=== PATIENT | male | born 1950 | race Caucasian/White ===

== ENCOUNTER 2016-07-14 09:06 | Day surgery (SDC) | payer BC ==
--- NOTE | 2016-07-14 08:57 | PCM.OPNOTE ---
- General Post-Op/Procedure Note Date of Surgery/Procedure: 07/14/16 Operative Procedure(s): Surveillance with colonoscopy with cold forceps polypectomy Pre Op Diagnosis: Personal history of tubular adenomas of the colon Post-Op Diagnosis: Colon polyps, question of early diverticulosis Anesthesia Technique: MAC Primary Surgeon: Joy Jacob Anesthesia Provider: Rebeca Johnson Pathology: 1. Sigmoid colon polyps 3 2. Rectal polyp EBL in mLs: 1 Complications: None Condition: Good Free Text/Narrative:: FLUIDS: 500 mL crystalloid INDICATION FOR PROCEDURE: The patient is a 66-year-old man who was referred to me by Dr. Todd Neville for evaluation for a personal history of adenomatous colon polyps. Performing a surveillance colonoscopy and the associated risks of the procedure had been discussed with the patient. The patient found these risks acceptable and agreed to proceed. DESCRIPTION OF PROCEDURE: The patient was taken to the operating room and placed in left lateral decubitus position. After induction of adequate sedation , a digital rectal exam was performed which was unremarkable. There were no prostatic nodules. The prostate was slightly enlarged. An adult Olympus colonoscope was inserted into the rectum and guided under direct visualization to the appendiceal orifice and ileocecal valve. The scope was then slowly withdrawn through the colon. The quality of the prep was good. There was no evidence of angiodysplasias. There was the appearance of early developing diverticulosis in the sigmoid colon. It was mild. There were 3 small sessile polyps in the sigmoid colon, they were removed using cold forceps. There was one diminutive sessile polyp in the rectum, it was removed using cold forceps. The scope was withdrawn into the rectum and retroflexed. There was no significant prominence of the patient's internal hemorrhoids. The scope was straightened, the colon was desufflated, and the scope was withdrawn. The patient was awakened from sedation and transferred to the recovery room in stable condition having tolerated the procedure well. POSTOPERATIVE PLAN: The patient may resume his Plavix in 2 days. He will receive a letter regarding his pathology and when his next colonoscopy should be performed. We discussed preoperatively that he needed to have his procedure performed at the hospital due to his BMI of 40, Dr. Neville may be able to perform future colonoscopies if the patient's BMI can be reduced.
[~2016-07-14 09:06] MED LIST: Lactated Ringers 1,000 ML IV SCH; Lidocaine 1%/Sod Bicarbonate in NS 8.4% 1 ML Syringe PRN; Sodium Chloride 0.9% 10 ML Syringe FLUSH PRN
--- NOTE | 2016-07-14 10:14 | PCM.PREANE ---
Preanesthetic Assessment - Anesthesia/Transfusion/Family Hx Anesthesia History: Prior Anesthesia Without Reaction Family History of Anesthesia Reaction: No Transfusion History: No Prior Transfusion(s) - Review of Systems General: No Symptoms Pulmonary: No Symptoms Cardiovascular: No Symptoms Gastrointestinal: No symptoms Neurological: No Symptoms Other: Reports: Diabetes, Thyroid Problems, Depression, Anxiety - Physical Assessment NPO Status Date: 07/13/16 (sip of water with am pills) NPO Status Time: 20:00 Pulse: 54 O2 Sat by Pulse Oximetry: 95 Respiratory Rate: 16 Blood Pressure: 116/55 Temperature: 97.1 F Height: 5 ft 5 in Weight: 107.501 kg ASA Class: 3 Mental Status: Alert & Oriented x3 Airway Class: Mallampati = 1 Dentition: Reports: Normal Dentition Thyro-Mental Finger Breadths: 3 Mouth Opening Finger Breadths: 3 ROM/Head Extension: Full Lungs: Clear to auscultation, Normal respiratory effort Cardiovascular: Regular Rate, Regular Rhythm - Lab Values: Laboratory Last Values POC Glucose 116 mg/dL (80-115) H 07/14/16 09:39 05/24 BUN 16 Cr 0.98 Lyte4s WNL HGB A1C 6.4 Hgb 15 Plt 200 - Imaging/EKG Impressions: 07/14/16 EKG SR -borderline right axis deviation 2015 echo EF 60-95%- mitral tricuspid regurg - Allergies Allergies/Adverse Reactions: Allergies Allergy/AdvReac Type Severity Reaction Status Date / Time aspirin Allergy Cannot Verified 07/14/16 10:12 Remember ibuprofen Allergy Swelling Verified 07/14/16 10:12 pseudoephedrine Allergy Swelling Verified 07/14/16 10:12 - Blood Blood Available: No - Anesthesia Plan Pre-Op Medication Ordered: Beta Siva Beta Siva: Metoprolol Med Last Dose Date: 07/14/16 Med Last Dose Time: 06:30 - Acknowledgements Anesthesia Type Planned: MAC Pt an Appropriate Candidate for the Planned Anesthesia: Yes Alternatives and Risks of Anesthesia Discussed w Pt/Guardian: Yes Pt/Guardian Understands and Agrees with Anesthesia Plan: Yes PreAnesthesia Questionnaire HEENT History: Reports: Impaired Vision, Other (See Below) Other HEENT History: wears glasses Cardiovascular History: Reports: Bypass (2012), CAD, Other (See Below) Other Cardiovascular History: NSTEMI Respiratory History: Reports: Sleep Apnea (cpap), SOB, Other (See Below) Other Respiratory History: wheezing Gastrointestinal History: Reports: GERD Genitourinary History: Reports: None OPERATIONS MANAGER/COORDINATOR History: Reports: None Other Musculoskeletal History: cerviclagia, lumbago, joint pain, rotator cuff capsule sprain, L side pain Psychiatric History: Reports: Anxiety, Depression, Other (See Below) Other Psychiatric History: hypersomnia Endocrine/Metabolic History: Reports: Diabetes, Type II, Obesity/BMI 30+ Hematologic History: Reports: None Immunologic History: Reports: None Oncologic (Cancer) History: Reports: None Dermatologic History: Reports: Other (See Below) - Past Surgical History Head Surgeries/Procedures: Reports: None HEENT Surgical History: Reports: Tonsillectomy Cardiovascular Surgical History: Reports: Coronary Artery Bypass, Other (See Below) Other Cardiovascular Surgeries/Procedures: cardiac catheterization GI Surgical History: Reports: Colonoscopy, EGD, Other (See Below) Other GI Surgeries/Procedures: umbilical hernia repair - SUBSTANCE USE Smoking Status *Q: Former Smoker Tobacco Use Within Last Twelve Months: No Second Hand Smoke Exposure: No Days Per Week of Alcohol Use: 1 (once every 2 weeks) Number of Drinks Per Day: 1 Total Drinks Per Week: 1 Recreational Drug Use History: No - HOME MEDS Home Medications: Home Meds Albuterol [Ventolin HFA] 1 - 2 puff INH Q4H PRN 07/13/16 [History] Clopidogrel [Plavix] 75 mg PO DAILY 07/13/16 [History] Hydrocodone/Acetaminophen [[place] 5-325] 1 tab PO Q4H PRN 07/13/16 [History] Isosorbide Mononitrate [Imdur] 30 mg PO DAILY 07/13/16 [History] Levothyroxine Sodium [Levothyroxine Sodium] 50 mcg PO DAILY 07/13/16 [History] Losartan [Cozaar] 50 mg PO DAILY 07/13/16 [History] Metoprolol Tartrate [Metoprolol Tartrate] 12.5 mg PO BID 07/13/16 [History] Omeprazole Magnesium [Prilosec Otc] 20 mg PO DAILY 07/13/16 [History] Sertraline HCl [Sertraline HCl] 100 mg PO DAILY 07/13/16 [History] atorvaSTATin Calcium [Atorvastatin Calcium] 40 mg PO DAILY 07/13/16 [History] metFORMIN HCl [Metformin HCl] 250 mg PO BID 07/13/16 [History] - CURRENT (IN HOUSE) MEDS Current Meds: Current Medications Lactated Ringer's (Ringers, Lactated) 1,000 mls @ 125 mls/hr IV ASDIRECTED JAVID Stop: 07/14/16 23:00 Lidocaine/Sodium Bicarbonate (Buffered Lidocaine 1% In Ns 8.4%) 0.25 ml .XX ONETIME PRN PRN Reason: Prior to IV Start Stop: 07/14/16 18:00 Sodium Chloride (Saline Flush) 10 ml FLUSH ASDIRECTED PRN PRN Reason: Keep Vein Open Stop: 07/14/16 18:00
[2016-07-14] MEDS ORDERED: Propofol 200 MG/20 ML SDV ONE (11:11)
[2016-07-14] MEDS ORDERED: Lidocaine 1% 2 ML ONE (11:12)
--- NOTE | 2016-07-14 11:50 | PCM48HPAN ---
Post Anesthesia Note - EVALUATION WITHIN 48HRS OF ANESTHETIC Vital Signs in Normal Range: Yes Patient Participated in Evaluation: Yes Respiratory Function Stable: Yes (on NC 2L phase II nurse will wean off ) Airway Patent: Yes Cardiovascular Function Stable: Yes Hydration Status Stable: Yes Pain Control Satisfactory: Yes Nausea and Vomiting Control Satisfactory: Yes Mental Status Recovered: Yes
[2016-07-14 12:01] VITALS: BP 100/53
== END 2016-07-14 12:38 | disposition home or self-care (01) ==
LOC: JD.SDS 09:06
PROVIDERS: ATTEND Surgery
DX: Z12.11 Encounter for screening for malignant neoplasm of colon (principal); D12.5 Benign neoplasm of sigmoid colon; K62.1 Rectal polyp; K63.5 Polyp of colon; Z86.010 Personal history of colon polyps; K57.30 Diverticulosis of large intestine without perforation or abscess without bleeding; Z88.8 Allergy status to other drugs, medicaments and biological substances; G47.33 Obstructive sleep apnea (adult) (pediatric); F41.9 Anxiety disorder, unspecified; I25.810 Atherosclerosis of coronary artery bypass graft(s) without angina pectoris; F32.9 Major depressive disorder, single episode, unspecified; E78.5 Hyperlipidemia, unspecified; E11.9 Type 2 diabetes mellitus without complications; E03.9 Hypothyroidism, unspecified; Z98.890 Other specified postprocedural states; Z79.84 Long term (current) use of oral hypoglycemic drugs; Z79.899 Other long term (current) drug therapy
CPT/HCPCS: 45380; 82962; 88305; 93005; J7120; 00810; J2704

== ENCOUNTER 2017-02-07 17:12 | Emergency (ER) | payer BC ==
[2017-02-07 17:23] VITALS: BP 143/68
[2017-02-07] MEDS ORDERED: Sodium Chloride 0.9% 10 ML Syringe FLUSH PRN (17:55)
[2017-02-07] MEDS ORDERED: Alum Hydrox/Mag Hydrox/Simeth 30 ML, Lidocaine 2% 15 ML PO ONE ×2 (17:55)
[2017-02-07] MEDS ORDERED: Famotidine 20 MG/2 ML SDV IVPUSH ONE (17:55)
--- NOTE | 2017-02-07 20:28 | EDM.PDOC ---
ED HPI GENERAL MEDICAL PROBLEM - General Chief Complaint: Chest Pain Stated Complaint: TIGHTNESS IN CHEST BIPASS 3 YRS AGO Time Seen by Provider: 02/07/17 17:30 Source of Information: Reports: Patient History Limitations: Reports: No Limitations - History of Present Illness INITIAL COMMENTS - FREE TEXT/NARRATIVE: 66-year-old male presents for evaluation and treatment of chest pain. Patient reports that he is experiencing chest discomfort on left side of his chest. He states that it feels like "itching". He also reports a burning sensation in his chest and states that the chest pain is worse with palpation and raising his left arm. He reports is a constant pain. Reports that it started this morning around 4 AM. He reports that he has shortness of breath but states he always has this and it is not seeming worse than normal. No nausea, vomiting or diaphoresis. No lightheadedness, dizziness, syncope, fevers or cough. He reports his left hand did feel numb earlier but also notches that he was lying on it at the time. He did not take an aspirin today as he has an allergy to aspirin. Patient reports that he was shoveling on Tuesday. He did not experiencing chest pain immediately after shoveling. Patient reports that he had a double bypass about 4 years ago. He currently sees a airport operations duty manager yearly and saw her last about a week ago. He states that he was given "a clean bill of health. " Patient reports he did have a shot of Taurus and Neeraj this afternoon. Left Upper Chest Pain Score (Numeric/FACES): 9 - Related Data Allergies Allergy/AdvReac Type Severity Reaction Status Date / Time aspirin Allergy Cannot Verified 02/07/17 17:23 Remember ibuprofen Allergy Swelling Verified 02/07/17 17:23 pseudoephedrine Allergy Swelling Verified 02/07/17 17:23 Home Meds: Home Meds Albuterol [Ventolin HFA] 1 - 2 puff INH Q4H PRN 07/13/16 [History] Clopidogrel [Plavix] 75 mg PO DAILY 07/13/16 [History] Hydrocodone/Acetaminophen [[place] 5-325] 1 tab PO Q4H PRN 07/13/16 [History] Isosorbide Mononitrate [Imdur] 30 mg PO DAILY 07/13/16 [History] Levothyroxine Sodium 50 mcg PO DAILY 07/13/16 [History] Losartan [Cozaar] 50 mg PO DAILY 07/13/16 [History] Metoprolol Tartrate 12.5 mg PO BID 07/13/16 [History] Omeprazole Magnesium [Prilosec Otc] 20 mg PO DAILY 07/13/16 [History] Sertraline HCl 100 mg PO DAILY 07/13/16 [History] atorvaSTATin Calcium [Atorvastatin Calcium] 40 mg PO DAILY 07/13/16 [History] metFORMIN HCl [Metformin HCl] 250 mg PO BID 07/13/16 [History] Past Medical History HEENT History: Reports: Impaired Vision, Other (See Below) Other HEENT History: wears glasses Cardiovascular History: Reports: Bypass, CAD, Other (See Below) Other Cardiovascular History: NSTEMI Respiratory History: Reports: Sleep Apnea, SOB, Other (See Below) Other Respiratory History: wheezing Gastrointestinal History: Reports: GERD Genitourinary History: Reports: None CREATIVE SERVICES COORDINATOR History: Reports: None Other Musculoskeletal History: cerviclagia, lumbago, joint pain, rotator cuff capsule sprain, L side pain Neurological History: Reports: Headaches, Chronic, Vertigo Psychiatric History: Reports: Anxiety, Depression, Other (See Below) Other Psychiatric History: hypersomnia Endocrine/Metabolic History: Reports: Diabetes, Type II, Obesity/BMI 30+ Hematologic History: Reports: None Immunologic History: Reports: None Oncologic (Cancer) History: Reports: None Dermatologic History: Reports: Other (See Below) - Past Surgical History Head Surgeries/Procedures: Reports: None HEENT Surgical History: Reports: Tonsillectomy Cardiovascular Surgical History: Reports: Coronary Artery Bypass, Other (See Below) Other Cardiovascular Surgeries/Procedures: cardiac catheterization GI Surgical History: Reports: Colonoscopy, EGD, Other (See Below) Other GI Surgeries/Procedures: umbilical hernia repair Social & Family History - Family History Family Medical History: Noncontributory - Tobacco Use Smoking Status *Q: Never Smoker Month Tobacco Last Used: 1996 Second Hand Smoke Exposure: No - Caffeine Use Caffeine Use: Reports: None - Alcohol Use Days Per Week of Alcohol Use: 1 (once every 2 weeks) Number of Drinks Per Day: 1 Total Drinks Per Week: 1 - Recreational Drug Use Recreational Drug Use: No Drug Use in Last 12 Months: No ED ROS GENERAL - Review of Systems Review Of Systems: See Below Constitutional: Denies: Fever, Chills Respiratory: Reports: Shortness of Breath (chronic, no change). Denies: Cough Cardiovascular: Reports: Chest Pain (left, worse with left shoulder movement and palpation). Denies: Lightheadedness, Syncope GI/Abdominal: Denies: Abdominal Pain, Nausea, Vomiting Musculoskeletal: Denies: Neck Pain Neurological: Reports: Numbness (left hand earlier, now resolved). Denies: Syncope ED EXAM, GENERAL - Physical Exam Exam: See Below Exam Limited By: No Limitations General Appearance: Alert, WD/WN, No Apparent Distress, Obese Eye Exam: Bilateral Eye: Normal Inspection Ears: Normal External Exam Nose: Normal Inspection Throat/Mouth: Normal Inspection, Normal Lips, Normal Oropharynx, Normal Voice, No Airway Compromise Neck: Normal Inspection Respiratory/Chest: No Respiratory Distress, Lungs Clear, Normal Breath Sounds, Other (tenderness to palpation of the left chest intercostal space 4 lateral to the sternum) Cardiovascular: Normal Peripheral Pulses, Regular Rate, Rhythm, No Murmur Peripheral Pulses: 2+: Radial (L), Radial (R) GI/Abdominal: Soft, Non-Tender Neurological: Alert, Oriented, Normal Cognition Psychiatric: Normal Affect, Normal Mood Skin Exam: Warm, Dry, Normal Color EKG INTERPRETATION EKG Date: 02/07/17 Time: 17:25 Rhythm: NSR Rate (Beats/Min): 61 [place]: Normal P-Wave: Present QRS: Normal ST-T: Normal QT: Normal EKG Interpretation Comments: NSR at 61 bpm. Near Q waves V1 & V2 - consider old anteroseptal WA. Very minimal ST elevation II, III and AVF (?) QT mildly prolonged. Reviewed by myself and Dr. Preston. Course - Vital Signs Last Recorded V/S: Last Vital Signs Temp 36.1 C 02/07/17 17:19 Pulse 71 02/07/17 17:19 Resp 22 H 02/07/17 17:19 BP 143/68 H 02/07/17 17:19 Pulse Ox 97 02/07/17 17:19 - Orders/Labs/Meds Labs: Laboratory Tests 02/07/17 02/07/17 02/07/17 Range/Units 18:45 18:45 18:45 WBC 8.94 (4.23-9.07) K/mm3 RBC 4.78 (4.63-6.08) M/mm3 Hgb 14.8 (13.7-17.5) gm/L Hct 43.6 (40.1-51.0) % MCV 91.2 (79.0-92.2) fl MCH 31.0 (25.7-32.2) pg MCHC 33.9 (32.2-35.5) g/dl RDW Std Deviation 44.3 H (35.1-43.9) fL Plt Count 207 (163-337) K/mm3 MPV 10.8 (9.4-12.3) fl Neut % (Auto) 62.4 (34.0-67.9) % Lymph % (Auto) 23.2 (21.8-53.1) % [place] % (Auto) 9.6 (5.3-12.2) % Eos % (Auto) 3.6 (0.8-7.0) Baso % (Auto) 1.1 (0.1-1.2) % Neut # (Auto) 5.58 H (1.78-5.38) K/mm3 Lymph # (Auto) 2.07 (1.32-3.57) K/mm3 [place] # (Auto) 0.86 H (0.30-0.82) K/mm3 Eos # (Auto) 0.32 (0.04-0.54) K/mm3 Baso # (Auto) 0.10 H (0.01-0.08) K/mm3 PT 10.1 (8.0-13.0) SECONDS INR 0.93 APTT 25 (22-36) SECONDS Sodium 137 (136-145) mEq/L Potassium 4.3 (3.5-5.1) mEq/L Chloride 103 (98-107) mEq/L Carbon Dioxide 26 (21-32) mEq/L Anion Gap 12.3 (5-15) BUN 18 (7-18) mg/dL Creatinine 1.2 (0.7-1.3) mg/dL Est Cr Clr Drug Dosing 56.12 mL/min Estimated GFR (MDRD) > 60 (>60) mL/min BUN/Creatinine Ratio 15.0 (14-18) Glucose 130 H (80-115) mg/dL Calcium 8.8 (8.5-10.1) mg/dL Magnesium (1.8-2.4) mg/dl Total Bilirubin 0.3 (0.2-1.0) mg/dL AST 17 (15-37) U/L ALT 40 (16-63) U/L Alkaline Phosphatase 96 (46-116) U/L CK-MB (CK-2) 1.0 (0-3.6) ng/ml Troponin I < 0.017 (0.00-0.056) ng/mL Total Protein 7.3 (6.4-8.2) g/dl Albumin 3.7 (3.4-5.0) g/dl Globulin 3.6 gm/dL Albumin/Globulin Ratio 1.0 (1-2) 02/07/17 Range/Units 18:45 WBC (4.23-9.07) K/mm3 RBC (4.63-6.08) M/mm3 Hgb (13.7-17.5) gm/L Hct (40.1-51.0) % MCV (79.0-92.2) fl MCH (25.7-32.2) pg MCHC (32.2-35.5) g/dl RDW Std Deviation (35.1-43.9) fL Plt Count (163-337) K/mm3 MPV (9.4-12.3) fl Neut % (Auto) (34.0-67.9) % Lymph % (Auto) (21.8-53.1) % [place] % (Auto) (5.3-12.2) % Eos % (Auto) (0.8-7.0) Baso % (Auto) (0.1-1.2) % Neut # (Auto) (1.78-5.38) K/mm3 Lymph # (Auto) (1.32-3.57) K/mm3 [place] # (Auto) (0.30-0.82) K/mm3 Eos # (Auto) (0.04-0.54) K/mm3 Baso # (Auto) (0.01-0.08) K/mm3 PT (8.0-13.0) SECONDS INR APTT (22-36) SECONDS Sodium (136-145) mEq/L Potassium (3.5-5.1) mEq/L Chloride (98-107) mEq/L Carbon Dioxide (21-32) mEq/L Anion Gap (5-15) BUN (7-18) mg/dL Creatinine (0.7-1.3) mg/dL Est Cr Clr Drug Dosing mL/min Estimated GFR (MDRD) (>60) mL/min BUN/Creatinine Ratio (14-18) Glucose (80-115) mg/dL Calcium (8.5-10.1) mg/dL Magnesium 2.2 (1.8-2.4) mg/dl Total Bilirubin (0.2-1.0) mg/dL AST (15-37) U/L ALT (16-63) U/L Alkaline Phosphatase (46-116) U/L CK-MB (CK-2) (0-3.6) ng/ml Troponin I (0.00-0.056) ng/mL Total Protein (6.4-8.2) g/dl Albumin (3.4-5.0) g/dl Globulin gm/dL Albumin/Globulin Ratio (1-2) Meds: Medications Discontinued Medications Generic Name Dose Route Start Last Admin Trade Name Freq PRN Reason Stop Dose Admin Al Hydroxide/Mg Hydroxide 30 0 ml 02/07/17 17:55 02/07/17 18:21 ml/ Lidocaine HCl 15 ml PO 02/07/17 17:56 45 ml ONETIME ONE Administration Famotidine 20 mg 02/07/17 17:55 02/07/17 18:21 Pepcid IVPUSH 02/07/17 17:56 20 mg ONETIME ONE Administration Sodium Chloride 10 ml 02/07/17 17:55 02/07/17 18:21 Saline Flush FLUSH 10 ml ASDIRECTED PRN Administration Keep Vein Open - Radiology Interpretation Free Text/Narrative:: Chest: Frontal view of the chest was obtained. Comparison: Prior chest x-ray of 08/25/10. Heart is slightly enlarged. Prior sternotomy is noted. Lungs are clear. Bony structures are grossly intact. Impression: 1. Heart is slightly enlarged with prior sternotomy. 2. Nothing acute is seen on frontal chest x-ray. - Re-Assessments/Exams Free Text/Narrative Re-Assessment/Exam: 02/07/17 20:22 I reviewed the lab, EKG and chest x-ray results with the patient. He is very anxious to go at this time. Pain greatly improved after the GI cocktail and Pepcid. Continues to Have Some Minor Discomfort with Palpation to the Left Side of His Chest. I Feel This Is Chest Wall in Origin Also likely Some Heartburn. instructed to Use Tylenol and Heat for the Chest Wall Discomfort. He Is Currently on Omeprazole for the Reflux. I'll have him Follow up with His Primary Care Provider. Discharge Instructions as documented. Departure - Departure Time of Disposition: 20:26 Disposition: Home, Self-Care 01 Condition: Good Clinical Impression: GERD (gastroesophageal reflux disease), Chest wall pain Instructions: Chest Wall Pain, [id number], Gastroesophageal Reflux Disease, Adult Referrals: PCP,None [Primary Care Provider] - Forms: ED Department Discharge Additional Instructions: [id number] Tylenol as needed for pain relief. may try heat to the sore area. Recommend discussing with your pharmacist there is an option for a more affordable proton pump inhibitor. Follow up with your primary care provider every 1-2 weeks for a recheck of your symptoms. Please return to the ER if your symptoms change or worsen.
--- NOTE | 2017-02-08 08:01 | CR ---
Chest: Frontal view of the chest was obtained. Comparison: Prior chest x-ray of 08/25/10. Heart is slightly enlarged. Prior sternotomy is noted. Lungs are clear. Bony structures are grossly intact. Impression: 1. Heart is slightly enlarged with prior sternotomy. 2. Nothing acute is seen on frontal chest x-ray. Diagnostic code #2
== END 2017-02-07 20:33 | disposition home or self-care (01) ==
LOC: JD.ED 17:12
DX: K21.9 Gastro-esophageal reflux disease without esophagitis (principal); E11.9 Type 2 diabetes mellitus without complications; Z79.84 Long term (current) use of oral hypoglycemic drugs; Z79.82 Long term (current) use of aspirin; Z79.899 Other long term (current) drug therapy
CPT/HCPCS: 36415; 71045; 80053; 82553; 83735; 84484; 85025; 85610; 85730; 93005; 96374; 99285; A9270; J7050; 93010; 99284